=== PATIENT | male | born 1985 | race Caucasian/White ===

== ENCOUNTER 2017-07-14 09:22 | Emergency (ER) | payer SELFPAY | END 2017-07-14 10:07 | disposition home or self-care (01) | LOC: ER 09:22 | DX: J02.9 Acute pharyngitis, unspecified (principal); F17.200 Nicotine dependence, unspecified, uncomplicated; Z87.442 Personal history of urinary calculi; Z88.2 Allergy status to sulfonamides | CPT/HCPCS: 99283 ==